=== PATIENT | male | born 1975 | race Caucasian/White ===

== ENCOUNTER 2019-08-18 15:10 | Emergency (ER) | payer OTHER, BC ==
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
[2019-08-18 15:23] VITALS: BP 163/80; PULSE 81; TEMP 98; BMI 25.2
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
== END 2019-08-18 17:21 | disposition home or self-care (01) ==
LOC: JERFT 15:10
DX: M62.838 Other muscle spasm (principal); V43.52XA Car driver injured in collision with other type car in traffic accident, initial encounter; Y92.488 Other paved roadways as the place of occurrence of the external cause; Y93.89 Activity, other specified; Y99.8 Other external cause status
CPT/HCPCS: 99281-25